=== PATIENT | female | born 1980 | race Two or more races ===

== ENCOUNTER 2016-11-27 16:09 | Emergency (ER) | payer OTHER ==
[~2016-11-27] VITALS: Ht 167.6 cm; Wt 100.0 kg
[~2016-11-27 16:09] MED LIST: HYDR-906 PO; MAG-19 PO; OMEP20CA16 PO; ONDA4TAB14 PO
[2016-11-27 16:11] VITALS: Ht 167.6 cm; Wt 100.0 kg
[2016-11-27] MEDS ORDERED: LIDOCAINE/MYLANTA 40 ML BTL PO STA (17:14)
--- NOTE | 2016-11-27 17:20 | ERD ---
ER Documentation Chief Complaint Date/Time DATE: 11/27/16 TIME: 17:17 Chief Complaint epigastric pain x 1 week HPI This is a 36-year-old female presenting to the emergency department for epigastric abdominal pain 1 week. Patient describes the pain as sharp rating 7 /10 to epigastric region. Went to her primary care provider who prescribed her omeprazole. Patient states she took omeprazole for 2 days and did not notice an improvement. Patient states today pain is worse. Does not notice any improvement or worsening with food intake. Denies fever chills at home. No shortness of breath or difficulty breathing. Denies chest pain or chest pressure. No heart palpitations. No headache or dizziness. Denies nausea, vomiting or diarrhea. No constipation. ROS All systems reviewed and are negative except as per history of present illness. Medications Home Meds Active Scripts Acetaminophen* (Tylenol*) 325 Mg Tablet, 1 TAB PO Q6 Y for PAIN AND OR ELEVATED TEMP, #20 TAB Prov:YANG HUNT NP 11/27/16 Famotidine* (Pepcid*) 20 Mg Tablet, 20 MG PO BID for 4 Days, TAB Prov:YANG HUNT NP 11/27/16 Omeprazole* (Omeprazole*) 20 Mg Capsule.dr, 20 MG PO DAILY, #30 Prov:ARIANA PLAZA NP 03/17/16 Magaldrate/Simethicone* (Mylanta*) 355 Ml Susp, 30 ML PO QID Y for GASTROINTESTINAL UPSET, #1 BOTTLE Prov:ARIANA PLAZA NP 03/17/16 Ondansetron (Ondansetron Odt) 4 Mg Tab.rapdis, 4 MG PO Q8 Y for NAUSEA AND/OR VOMITING, #30 TAB Prov:ARIANA PLAZA NP 03/17/16 Hydrocodone/Acetaminophen ([place] 5-325 Tablet) 1 Each Tablet, 1 TAB PO Q6H Y for PAIN, #20 TAB Prov:ARIANA PLAZA NP 03/17/16 Reported Medications [None] No Conflict Check 01/11/10 Allergies Allergies: Coded Allergies: No Known Drug Allergies (Verified Allergy, Mild, 01/20/12) PMhx/Soc History of Surgery: Yes ( X2, , UTERUS REPAIR) Anesthesia Reaction: No Hx Neurological Disorder: No Hx Respiratory Disorders: No Hx Cardiac Disorders: No Hx Psychiatric Problems: No Hx Miscellaneous Medical Probl: No Hx Alcohol Use: No Hx Substance Use: No Hx Tobacco Use: No Smoking Status: Never smoker Physical Exam Vitals Vital Signs Date Time Temp Pulse Resp B/P Pulse Ox O2 Delivery O2 Flow Rate FiO2 11/27/16 16:11 99.5 86 18 133/89 99 Physical Exam Const: No acute distress, alert Head: Atraumatic Eyes: Normal Conjunctiva ENT: Normal External Ears, Nose and Mouth. Neck: Full range of motion..~ No meningismus. Resp: Clear to auscultation bilaterally. No wheezing, rhonchi or crackles. Cardio: Regular rate and rhythm, no murmurs Abd: Soft, non tender, non distended. Normal bowel sounds. Negative Garber sign. Skin: No petechiae or rashes Back: No midline or flank tenderness Ext: No cyanosis, or edema Neur: Awake and alert Psych: Normal Mood and Affect Result Diagram: 11/27/16 1728 11/27/16 1728 Results 24 hrs Laboratory Tests Test 11/27/16 17:28 11/27/16 17:42 White Blood Count 9.410^3/ul Red Blood Count 4.6910^6/ul Hemoglobin 12.6g/dl Hematocrit 40.3% Mean Corpuscular Volume 85.9fl Mean Corpuscular Hemoglobin 26.9pg Mean Corpuscular Hemoglobin Concent 31.3g/dl Red Cell Distribution Width 13.2% Platelet Count 20406^3/UL Mean Platelet Volume 9.7fl Neutrophils % 55.4% Lymphocytes % 31.3% Monocytes % 8.4% Eosinophils % 4.1% Basophils % 0.5% Nucleated Red Blood Cells % 0.0/100WBC Neutrophils # 5.210^3/ul Lymphocytes # 2.910^3/ul Monocytes # 0.810^3/ul Eosinophils # 0.410^3/ul Basophils # 0.110^3/ul Nucleated Red Blood Cells # 0.010^3/ul Sodium Level 139mmol/L Potassium Level 4.0mmol/L Chloride Level 109mmol/L Carbon Dioxide Level 23mmol/L Anion Gap 11 Blood Urea Nitrogen 11mg/dl Creatinine 0.68mg/dl Glucose Level 104mg/dl Calcium Level 9.2mg/dl Total Bilirubin 0.1mg/dl Direct Bilirubin 0.00mg/dl Indirect Bilirubin 0.1mg/dl Aspartate Amino Transf (AST/SGOT) 19IU/L Alanine Aminotransferase (ALT/SGPT) 30IU/L Alkaline Phosphatase 64IU/L Total Protein 7.7g/dl Albumin 4.1g/dl Globulin 3.60g/dl Albumin/Globulin Ratio 1.13 Lipase 42U/L Bedside Urine pH (LAB) 5.5 Bedside Urine Protein (LAB) Negative Bedside Urine Glucose (UA) Negative Bedside Urine Ketones (LAB) Negative Bedside Urine Blood 1+ Bedside Urine Nitrite (LAB) Negative Bedside Urine Leukocyte Esterase (L Negative Current Medications Medications (Trade) Dose Ordered Sig/Cuco Route PRN Reason Start Time Stop Time Status Last Admin Dose Admin Miscellaneous Medication (Gi Cocktail (2)) 40 ml ONCE STAT PO 11/27/16 17:14 11/27/16 17:16 DC 11/27/16 17:21 Famotidine (Pepcid) 20 mg ONCE ONCE PO 11/27/16 17:30 11/27/16 17:31 DC 11/27/16 17:21 Ketorolac Tromethamine (Toradol) 30 mg ONCE STAT IV 11/27/16 18:18 11/27/16 18:19 DC 11/27/16 18:32 Acetaminophen/ Hydrocodone Bitart ([place] (5/325)) 1 tab ONCE ONCE PO 11/27/16 18:30 11/27/16 18:31 DC 11/27/16 18:32 Procedures/MDM Patient: ANAMIKA WHITE : 1980 Age: 36 Sex: F [id number] DOS: 11/27/16 1714 Ordering MD: YANG HUNT NP Location: [facility] Room/Bed: PROCEDURE: US Abdomen (right upper quadrant). CLINICAL INDICATION: Abdominal pain. TECHNIQUE: Multiple real-time longitudinal and transverse images of the right upper quadrant of the abdomen were acquired utilizing a curved array transducer. Images were reviewed on a high-resolution PACS workstation. COMPARISON: 03/17/2016 FINDINGS: The liver is normal in size and echogenicity without focal mass or intrahepatic biliary dilatation. The gallbladder is normal. There is no pericholecystic fluid or gallbladder wall thickening or gallstones. No intra or extrahepatic biliary dilatation is seen. The common bile duct measures 3.4 mm in maximal dimension. The visualized portions of the pancreas are unremarkable with obscuration of the tail of the pancreas. No free fluid is identified. The right kidney measures 10.2 cm in length. There is normal echogenicity within the right kidney. There is no perinephric fluid collection. No hydronephrosis, mass, or calculus is seen. IMPRESSION: Unremarkable right upper quadrant ultrasound. MDM: 36 year old female presents to ER with epigastric abdominal pain x 1 week. Pain is sharp and does not radiate. No chest pain, shortness of breath or difficulty breathing. No nausea, vomiting or diarrhea. Patient given pepcid and GI cocktail while in the ED. Upon reassessment, patient states pain has improved significantly and now rates pain 1-2/10. Labs are unremarkable for significant infection or anemia. Normal AST, ALT, bilirubin, glucose and creatinine. Normal WBC and Hgb. Gallbladder US reviewed by radiologist as unremarkable. Low suspicion for acute surgical abdomen, obstruction, peritonitis, acute cholangitis, acute cholecystitis or pancreatitis. Patient is appropriate for outpatient management and can follow up with their PCP in 2-3 days. Patient instructed to return to ED sooner if pain worsens or is intolerable, high fever or new symptoms such as anorexia, not tolerating PO, severe diarrhea or chest pain. Patient verbalizes understanding. All questions answered at discharge. Patient will be discharged with prescription for omeprazole and Tylenol. Departure Diagnosis: Primary Impression: Abdominal pain Abdominal location: right upper quadrant Qualified Code: R10.11 - Right upper quadrant abdominal pain Condition: Stable YANG HUNT NP November 27, 2016 17:20
[2016-11-27] MEDS ORDERED: FAMOTIDINE 20 MG TAB PO ONE (17:30)
[2016-11-27 17:39] LABS: URINE BLOOD (Dip) POC 1+ (NEGATIVE)
[2016-11-27 18:02] LABS: ADD SCAN DIFF NO
[2016-11-27 18:05] LABS: BASOPHIL # 0.1 10^3/ul (0.0-0.1); BASOPHILS % 0.5 % (0.0-2.0); EOSINOPHILS # 0.4 10^3/ul (0.0-0.5); EOSINOPHILS % 4.1 % (0.0-7.0); HEMATOCRIT 40.3 % (37.0-47.0); HEMOGLOBIN 12.6 g/dl (12.0-16.0); LYMPHOCYTES # 2.9 10^3/ul (0.8-2.9); LYMPHOCYTES % 31.3 % (15.0-51.0); MEAN CORPUSCULAR HEMOGLOBIN 26.9 pg (29.0-33.0); MEAN CORPUSCULAR HGB CONC 31.3 g/dl (32.0-37.0); MEAN CORPUSCULAR VOLUME 85.9 fl (82.0-101.0); MEAN PLATELET VOLUME 9.7 fl (7.4-10.4); MONOCYTE # 0.8 10^3/ul (0.3-0.9); MONOCYTES % 8.4 % (0.0-11.0); NEUTROPHIL # 5.2 10^3/ul (1.6-7.5); NEUTROPHILS % 55.4 % (39.0-77.0); PLATELET COUNT 338 10^3/UL (140-415); RED BLOOD COUNT 4.69 10^6/ul (4.20-5.40); RED CELL DISTRIBUTION WIDTH 13.2 % (11.5-14.5); WHITE BLOOD COUNT 9.4 10^3/ul (4.8-10.8)
--- NOTE | 2016-11-27 18:09 | RADRPT ---
PROCEDURE: US Abdomen (right upper quadrant). CLINICAL INDICATION: Abdominal pain. TECHNIQUE: Multiple real-time longitudinal and transverse images of the right upper quadrant of th e abdomen were acquired utilizing a curved array transducer. Images were reviewed on a high-resoluti on PACS workstation. COMPARISON: 03/17/2016 FINDINGS: The liver is normal in size and echogenicity without focal mass or intrahepatic biliary dilatation. The gallbladder is normal. There is no pericholecystic fluid or gallbladder wall thickening or gal lstones. No intra or extrahepatic biliary dilatation is seen. The common bile duct measures 3.4 mm in maximal dimension. The visualized portions of the pancreas are unremarkable with obscuration of the tail of the pancreas. No free fluid is identified. The right kidney measures 10.2 cm in length. There is normal echogenicity within the right kidney. There is no perinephric fluid collection. No hydronephrosis, mass, or calculus is seen. IMPRESSION: Unremarkable right upper quadrant ultrasound. RPTAT: .Severo Pablo MD, MD Date Time Electronically viewed and signed by .Severo Pablo MD, on 11/27/2016 18:08 .A/
[2016-11-27] MEDS ORDERED: KETOROLAC 30 MG INJ IV STA (18:18)
[2016-11-27 18:21] LABS: ALBUMIN 4.1 g/dl (3.3-4.9); ALBUMIN/GLOBULIN RATIO 1.13; BILIRUBIN,INDIRECT 0.1 mg/dl (0-1.1); BILIRUBIN,TOTAL 0.1 mg/dl (0.2-1.3); CALCIUM 9.2 mg/dl (8.4-10.2); CREATININE 0.68 mg/dl (0.44-1.00); TOTAL PROTEIN 7.7 g/dl (6.1-8.1)
[2016-11-27] MEDS ORDERED: HYDROCODONE/APAP (5/325) TAB PO ONE (18:30)
[2016-11-27] MEDS ORDERED: ACET325T33 PO (19:13)
[2016-11-27] MEDS ORDERED: FAMO-18 PO (19:13)
== END 2016-11-27 19:26 | disposition home or self-care (01) ==
LOC: FTE 16:09
DX: R10.11 Right upper quadrant pain (principal)
CPT/HCPCS: 36415; 76705; 80053; 81003; 83690; 85025; 96374; J1885; Z7502; Z7610

== ENCOUNTER 2017-01-21 19:53 | Emergency (ER) | payer OTHER ==
[~2017-01-21] VITALS: Ht 167.6 cm; Wt 99.0 kg
[~2017-01-21 19:53] MED LIST changes: +ACET325T33 PO; +FAMO-96 PO
[2017-01-21 19:57] VITALS: Ht 167.6 cm; Wt 99.0 kg
[2017-01-21] MEDS ORDERED: ACETAMINOPHEN 325 MG TAB PO STA (20:53)
--- NOTE | 2017-01-21 21:10 | ERD ---
ER Documentation Chief Complaint Date/Time DATE: 01/21/17 TIME: 21:07 Chief Complaint fall from standing, landing on back, pt is HPI 36-year-old female sent to emergency department for complaints of generalized abdominal pain after falling today. Patient tripped and fell, landed in the back , patient is approximately 10 weeks . 4 para 2 1. Patient has history of uterus with there during the second . Patient denies any vaginal bleeding. Patient's complaining of generalized abdominal pain , sharp pain, cramping pain, worse upon movement, 8/10, denies any vaginal bleeding. Patient denies any flank pain. Patient denies any back pain. Patient denies any loss of consciousness after the injury. ROS All systems reviewed and are negative except as per history of present illness. Medications Home Meds Active Scripts Acetaminophen* (Tylenol*) 325 Mg Tablet, 1 TAB PO Q6 Y for PAIN AND OR ELEVATED TEMP, #20 TAB Prov:YANG HUNT NP 11/27/16 Famotidine* (Pepcid*) 20 Mg Tablet, 20 MG PO BID for 4 Days, TAB Prov:YANG HUNT NP 11/27/16 Omeprazole* (Omeprazole*) 20 Mg Capsule.dr, 20 MG PO DAILY, #30 Prov:ARIANA PLAZA NP 03/17/16 Magaldrate/Simethicone* (Mylanta*) 355 Ml Susp, 30 ML PO QID Y for GASTROINTESTINAL UPSET, #1 BOTTLE Prov:ARIANA PLAZA NP 03/17/16 Ondansetron (Ondansetron Odt) 4 Mg Tab.rapdis, 4 MG PO Q8 Y for NAUSEA AND/OR VOMITING, #30 TAB Prov:ARIANA PLAZA NP 03/17/16 Hydrocodone/Acetaminophen ([place] 5-325 Tablet) 1 Each Tablet, 1 TAB PO Q6H Y for PAIN, #20 TAB Prov:ARIANA PLAZA NP 03/17/16 Reported Medications [None] No Conflict Check 01/11/10 Allergies Allergies: Coded Allergies: No Known Drug Allergies (Verified Allergy, Mild, 01/20/12) PMhx/Soc History of Surgery: Yes ( X2, , UTERUS REPAIR) Anesthesia Reaction: No Hx Neurological Disorder: No Hx Respiratory Disorders: No Hx Cardiac Disorders: No Hx Psychiatric Problems: No Hx Miscellaneous Medical Probl: No Hx Alcohol Use: No Hx Substance Use: No Hx Tobacco Use: No Smoking Status: Never smoker FmHx Family History: No coronary disease, No diabetes, No other Physical Exam Vitals Vital Signs Date Time Temp Pulse Resp B/P Pulse Ox O2 Delivery O2 Flow Rate FiO2 01/21/17 19:57 98.9 90 24 140/71 98 Physical Exam GENERAL: The patient is well developed and appropriate for usual state of health, in no apparent distress. CHEST: Clear to auscultation bilaterally. There are no rales, wheezes or rhonchi. HEART: Regular rate and rhythm. No murmurs, clicks, rubs or gallops. No S3 or S4. ABDOMEN: Soft, generalized abdominal tenderness. Good bowel sounds. No rebound or guarding. No gross peritonitis. No gross organomegaly or masses. No Garber sign or McBurney point tenderness. BACK: No midline or flank tenderness. EXTREMITIES: Equal pulses bilaterally. There is no peripheral clubbing, cyanosis or edema. No focal swelling or erythema. Full range of motion. Grossly neurovascularly intact. NEURO: Alert and oriented. Cranial nerves 2-12 intact. Motor strength in all 4 extremities with 5/5 strength. Sensation grossly intact. Normal speech and gait. SKIN: There is no apparent rash or petechia. The skin is warm and dry. HEMATOLOGIC AND LYMPHATIC: There is no evidence of excessive bruising or lymphedema. No gross cervical, axillary, or inguinal lymphadenopathy. Result Diagram: 01/21/172125 Results 24 hrs Laboratory Tests Test 01/21/17 21:17 01/21/17 21:26 Urine Color YELLOW Urine Clarity SLIGHTLY CLOUDY Urine pH 5.0 Urine Specific [place] 1.024 Urine Ketones NEGATIVEmg/dL Urine Nitrite NEGATIVEmg/dL Urine Bilirubin NEGATIVEmg/dL Urine Urobilinogen NEGATIVEmg/dL Urine Leukocyte Esterase NEGATIVELeu/ul Urine Microscopic RBC 33/HPF Urine Microscopic WBC 1/HPF Urine Mucus MODERATE/HPF Urine Hemoglobin 1+mg/dL Urine Glucose NEGATIVEmg/dL Urine Total Protein NEGATIVEmg/dl White Blood Count 9.410^3/ul Red Blood Count 4.3510^6/ul Hemoglobin 12.0g/dl Hematocrit 37.5% Mean Corpuscular Volume 86.2fl Mean Corpuscular Hemoglobin 27.6pg Mean Corpuscular Hemoglobin Concent 32.0g/dl Red Cell Distribution Width 13.2% Platelet Count 03070^3/UL Mean Platelet Volume 9.4fl Neutrophils % 62.2% Lymphocytes % 27.0% Monocytes % 7.7% Eosinophils % 2.4% Basophils % 0.4% Nucleated Red Blood Cells % 0.0/100WBC Neutrophils # 5.910^3/ul Lymphocytes # 2.510^3/ul Monocytes # 0.710^3/ul Eosinophils # 0.210^3/ul Basophils # 0.010^3/ul Nucleated Red Blood Cells # 0.010^3/ul Beta HCG, Quantitative 68362.0mIU/ml Current Medications Medications (Trade) Dose Ordered Sig/Cuco Route PRN Reason Start Time Stop Time Status Last Admin Dose Admin Acetaminophen (Tylenol Tab) 650 mg ONCE STAT PO 01/21/17 20:53 01/21/17 20:54 DC 01/21/17 21:18 Patient was given medication for pain here in emergency department, after treatment, patient verbalized feeling much better. Patient's pain is improved. PROCEDURE: OB Ultrasound. CLINICAL INDICATION: Positive test. Trauma. Pelvic pain. TECHNIQUE: Ultrasound of the pelvis was performed with transabdominal and transvaginal sonography in the axial and sagittal planes. COMPARISON: No prior study is available for comparison. FINDINGS: There is a single intrauterine gestational sac. pole and yolk sac are present. The yolk sac is abnormally enlarged. There is no heart motion. [place]-rump length is 0.40 cm. Mean sac diameter is 1.74 cm. There is a subchorionic hemorrhage. Menstrual age by ultrasound dates is 6 weeks 2 days. The right ovary appears normal measuring 3.3 x 2.1 x 3.2 cm. The left ovary appears normal measuring 2.5 x 2.4 x 2.6 cm. Color Doppler and pulsed Doppler sonography demonstrate normal flow to the ovaries. There is no other pelvic mass or free fluid. IMPRESSION: 1. Failed at 6 weeks 2 days menstrual age by ultrasound dates. 2. Subchorionic hemorrhage. 3. Otherwise unremarkable study. RPTAT: QQ .Giles Russ MD, Date Time Electronically viewed and signed by .Giles Russ MD, MD on 01/21/2017 22:39 .R/ CC: ARIANA PLAZA MANAGER [employer] Procedures/MDM Medical Decision Making: Patient symptoms affect is consistent with threatened , most likely may have been field at 6 weeks, no heart tone noted, there is a subchorionic hemorrhage noted. Patient's pain may be from the trauma, no symptoms of any other acute abdominal emergencies at this time. Upon reevaluation of patient, and after giving Tylenol, patient verbalizing much better, denies any abdominal pain anymore. Patient is currently not bleeding at this time. No symptoms of any other organ hemorrhage or damage at this time.. There is low suspicion for abdominal emergencies at this time. Patients abdominal exam is normal at this time. Patients radiology exam does not show any abdominal emergencies at this time. There is low suspicion for appendicitis, cholecystitis, abdominal aortic aneurysms or peritonitis at this time. There is low suspicion for sepsis. Patient appears well and is hemodynamically stable. . Patient does not show any evidence of hypovolemic shock. Patients hemoglobin and hematocrit is stable. There is low suspicion for ectopic . SILVIA results show intrauterine without any heartbeat BetaHCG Quantitative is appropriate for 6 weeks The patient is Rh+, does not need RhoGAM this time. Disposition: Home. Condition: Stable Rx: Tylenol Instructions: Patient is advised to do bed rest, avoid heavy lifting, and avoid having sex until cleared by OB doctor. Patient is advised to follow up with OB doctor or here at the ER in 48 hours for reevaluation of symptoms, repeat beta HCG quantitative and ultrasound. Patient is advised that is symptoms are worst, severe bleeding, dizziness, severe abdominal pain, fever, worst signs and symptoms to return to the emergency department immediately. Departure Diagnosis: Primary Impression: Abdominal pain Abdominal location: generalized Qualified Code: R10.84 - Generalized abdominal pain Additional Impressions: Back contusion Encounter type: initial encounter Laterality: unspecified laterality Qualified Code: S20.229A - Back contusion, unspecified laterality, initial encounter Intrauterine Subchorionic hemorrhage Fetus number: single or unspecified fetus Trimester: unspecified trimester Qualified Code: O41.8X90 - Subchorionic hemorrhage, unspecified trimester, not applicable or unspecified fetus Condition: Stable Patient Instructions: Abdominal Pain, Early , Contusion, Back Additional Instructions: Patient is advised to do bed rest, avoid heavy lifting, and avoid having sex until cleared by OB doctor. Patient is advised to follow up with OB doctor or here at the ER in 48 hours for reevaluation of symptoms, repeat beta HCG quantitative and ultrasound. Patient is advised that is symptoms are worst, severe bleeding, dizziness, severe abdominal pain, fever, worst signs and symptoms to return to the emergency department immediately. ARIANA PLAZA NP Jan 21, 2017 21:10
[2017-01-21 21:35] LABS: ADD SCAN DIFF NO
[2017-01-21 21:38] LABS: BASOPHILS % 0.4 % (0.0-2.0); EOSINOPHILS # 0.2 10^3/ul (0.0-0.5); EOSINOPHILS % 2.4 % (0.0-7.0); HEMATOCRIT 37.5 % (37.0-47.0); LYMPHOCYTES # 2.5 10^3/ul (0.8-2.9); MEAN CORPUSCULAR HEMOGLOBIN 27.6 pg (29.0-33.0); MEAN CORPUSCULAR VOLUME 86.2 fl (82.0-101.0); MEAN PLATELET VOLUME 9.4 fl (7.4-10.4); MONOCYTE # 0.7 10^3/ul (0.3-0.9); MONOCYTES % 7.7 % (0.0-11.0); NEUTROPHIL # 5.9 10^3/ul (1.6-7.5); NEUTROPHILS % 62.2 % (39.0-77.0); PLATELET COUNT 338 10^3/UL (140-415); RED BLOOD COUNT 4.35 10^6/ul (4.20-5.40); RED CELL DISTRIBUTION WIDTH 13.2 % (11.5-14.5); WHITE BLOOD COUNT 9.4 10^3/ul (4.8-10.8)
[2017-01-21 21:39] LABS: ADD UMIC YES; UR ASCORBIC ACID NEGATIVE (NEGATIVE); UR BILIRUBIN (Dip) NEGATIVE (NEGATIVE); UR BLOOD (Dip) 1+ mg/dL (NEGATIVE); UR CLARITY SLIGHTLY CLOUDY (CLEAR); UR COLOR YELLOW (YELLOW); UR GLUCOSE (Dip) NEGATIVE (NEGATIVE); UR KETONES (Dip) NEGATIVE (NEGATIVE); UR LEUKOCYTE ESTERASE (Dip) NEGATIVE Leu/ul (NEGATIVE); UR MUCUS MODERATE /HPF (NONE SEEN); UR NITRITE (Dip) NEGATIVE (NEGATIVE); UR RBC 33 /HPF (0-5); UR SPECIFIC GRAVITY (Dip) 1.024 (1.003-1.030); UR TOTAL PROTEIN (Dip) NEGATIVE (NEGATIVE); UR UROBILINOGEN (Dip) NEGATIVE (NEGATIVE)
--- NOTE | 2017-01-21 22:40 | RADRPT ---
PROCEDURE: OB Ultrasound. CLINICAL INDICATION: Positive test. Trauma. Pelvic pain. TECHNIQUE: Ultrasound of the pelvis was performed with transabdominal and transvaginal sonography in the axial and sagittal planes. COMPARISON: No prior study is available for comparison. FINDINGS: There is a single intrauterine gestational sac. pole and yolk sac are present. The yolk sac i s abnormally enlarged. There is no heart motion. [place]-rump length is 0.40 cm. Mean sac diameter is 1.74 cm. There is a subchorionic hemorrhage. Menstrual age by ultrasound dates is 6 weeks 2 days. The right ovary appears normal measuring 3.3 x 2.1 x 3.2 cm. The left ovary appears normal measuring 2.5 x 2.4 x 2.6 cm. Color Doppler and pulsed Doppler sonography demonstrate normal flow to the ovaries. There is no other pelvic mass or free fluid. IMPRESSION: 1. Failed at 6 weeks 2 days menstrual age by ultrasound dates. 2. Subchorionic hemorrhage. 3. Otherwise unremarkable study. RPTAT: QQ .Giles Russ MD, Date Time Electronically viewed and signed by .Giles Russ MD, on 01/21/2017 22:39 .R/
[2017-01-21] MEDS ORDERED: ACET500C5 PO (23:07)
== END 2017-01-21 23:26 | disposition home or self-care (01) ==
LOC: FTE 19:53
DX: O9A.211 Injury, poisoning and certain other consequences of external causes complicating pregnancy, first trimester (principal); S39.91XA Unspecified injury of abdomen, initial encounter; S20.229A Contusion of unspecified back wall of thorax, initial encounter; O36.8910 Maternal care for other specified fetal problems, first trimester, not applicable or unspecified; R10.2 Pelvic and perineal pain; W01.0XXA Fall on same level from slipping, tripping and stumbling without subsequent striking against object, initial encounter; Y92.9 Unspecified place or not applicable; Z3A.01 Less than 8 weeks gestation of pregnancy
CPT/HCPCS: 76801; 76817; 81001; 84702; 85025; 86900; 86901; Z7502; Z7610

== ENCOUNTER 2017-01-27 09:46 | Emergency (ER) | payer OTHER ==
[~2017-01-27] VITALS: Wt 90.9 kg
[~2017-01-27 09:46] MED LIST changes: +ACET500C5 PO
[2017-01-27] MEDS ORDERED: morphine 10 MG INJ IM ONE (10:30)
[2017-01-27 12:27] LABS: ADD SCAN DIFF NO
[2017-01-27 12:31] LABS: BASOPHILS % 0.3 % (0.0-2.0); EOSINOPHILS # 0.1 10^3/ul (0.0-0.5); EOSINOPHILS % 1.4 % (0.0-7.0); HEMATOCRIT 37.9 % (37.0-47.0); HEMOGLOBIN 12.2 g/dl (12.0-16.0); LYMPHOCYTES # 1.3 10^3/ul (0.8-2.9); LYMPHOCYTES % 15.3 % (15.0-51.0); MEAN CORPUSCULAR HEMOGLOBIN 27.7 pg (29.0-33.0); MEAN CORPUSCULAR HGB CONC 32.2 g/dl (32.0-37.0); MEAN CORPUSCULAR VOLUME 86.1 fl (82.0-101.0); MEAN PLATELET VOLUME 9.4 fl (7.4-10.4); MONOCYTE # 0.6 10^3/ul (0.3-0.9); MONOCYTES % 7.3 % (0.0-11.0); NEUTROPHIL # 6.5 10^3/ul (1.6-7.5); NEUTROPHILS % 75.4 % (39.0-77.0); PLATELET COUNT 308 10^3/UL (140-415); RED CELL DISTRIBUTION WIDTH 12.8 % (11.5-14.5); WHITE BLOOD COUNT 8.6 10^3/ul (4.8-10.8)
[2017-01-27 12:34] LABS: ADD UMIC YES; UR ASCORBIC ACID NEGATIVE (NEGATIVE); UR BILIRUBIN (Dip) NEGATIVE (NEGATIVE); UR BLOOD (Dip) 1+ mg/dL (NEGATIVE); UR CLARITY CLEAR (CLEAR); UR COLOR STRAW (YELLOW); UR GLUCOSE (Dip) NEGATIVE (NEGATIVE); UR KETONES (Dip) NEGATIVE (NEGATIVE); UR LEUKOCYTE ESTERASE (Dip) NEGATIVE Leu/ul (NEGATIVE); UR MUCUS FEW /HPF (NONE SEEN); UR NITRITE (Dip) NEGATIVE (NEGATIVE); UR RBC 0 /HPF (0-5); UR SPECIFIC GRAVITY (Dip) 1.008 (1.003-1.030); UR TOTAL PROTEIN (Dip) NEGATIVE (NEGATIVE); UR UROBILINOGEN (Dip) NEGATIVE (NEGATIVE)
--- NOTE | 2017-01-27 13:11 | RADRPT ---
AMENDMENT: 01/27/2017 2:06:00 PM Ly Pierre M.D. Comparison is made to prior ultrasound dated 01/21/2017. There has been no significant interval jay nge. Findings are compatible with early failed . PROCEDURE: US OB. CLINICAL INDICATION: Pelvic pain TECHNIQUE: Transabdominal and endovaginal imaging of the uterus is available for review COMPARISON: None available FINDINGS: There is a single intrauterine with a mean sac diameter of 1.61 cm, giving an estimated ge stational age of 6 weeks 2 days by ultrasound criteria. No pole or yolk sac is detected. A s mall subchorionic hemorrhage is identified. The left ovary is unremarkable. The right ovary was not visualized. IMPRESSION: Single intrauterine with an estimated gestational age of 6 weeks 2 days by ultrasound crit eria. No pole right sac is identified. This may be secondary to early dates. Repeat pelvic u ltrasound is recommended in 1 week. RPTAT: HH .Ly Pierre MD, MD Date Time Electronically viewed and signed by .Ly Pierre MD, on 01/27/2017 14:05 .G/
[2017-01-27] MEDS ORDERED: SOD CHLORIDE 0.9% 1,000 ML IV ONE (14:30)
[2017-01-27] MEDS ORDERED: ACET325T33 PO (14:44)
--- NOTE | 2017-01-27 14:53 | ERA ---
ER Documentation Chief Complaint Date/Time DATE: 01/27/17 TIME: 14:47 Chief Complaint pelvic pain s/p miscarraige on . HPI This is a 36-year-old female presenting with a chief complaint of pelvic pain. . Patient was diagnosed with a spontaneous 1 week ago. Patient was seen at [facility] and diagnosed with nausea and given Pepcid per documentation. Patient denies any fever, dysuria, constipation, abdominal pain , nausea, vomiting. Pain is 10 out of 10 and poorly described. No symptoms like this in the past. No complications with the before the spontaneous . Denies any bleeding. ROS All systems reviewed and are negative except as per history of present illness. Medications Home Meds Active Scripts Acetaminophen* (Tylenol*) 325 Mg Tablet, 1 TAB PO Q8 Y for PAIN AND OR ELEVATED TEMP, #20 TAB Prov:HUEY MORENO PA-C 01/27/17 Acetaminophen* (Tylophen*) 500 Mg Capsule, 1 CAP PO Q6H Y for PAIN AND OR ELEVATED TEMP, #20 CAP Prov:ARIANA PLAZA NP 01/21/17 Acetaminophen* (Tylenol*) 325 Mg Tablet, 1 TAB PO Q6 Y for PAIN AND OR ELEVATED TEMP, #20 TAB Prov:YANG HUNT NP 11/27/16 Famotidine* (Pepcid*) 20 Mg Tablet, 20 MG PO BID for 4 Days, TAB Prov:YANG HUNT NP 11/27/16 Omeprazole* (Omeprazole*) 20 Mg Capsule.dr, 20 MG PO DAILY, #30 Prov:ARIANA PLAZA NP 03/17/16 Magaldrate/Simethicone* (Mylanta*) 355 Ml Susp, 30 ML PO QID Y for GASTROINTESTINAL UPSET, #1 BOTTLE Prov:ARIANA PLAZA NP 03/17/16 Ondansetron (Ondansetron Odt) 4 Mg Tab.rapdis, 4 MG PO Q8 Y for NAUSEA AND/OR VOMITING, #30 TAB Prov:ARIANA PLAZA NP 03/17/16 Hydrocodone/Acetaminophen ([place] 5-325 Tablet) 1 Each Tablet, 1 TAB PO Q6H Y for PAIN, #20 TAB Prov:ARIANA PLAZA NP 03/17/16 Reported Medications [None] No Conflict Check 01/11/10 Allergies Allergies: Coded Allergies: No Known Drug Allergies (Verified Allergy, Mild, 01/20/12) PMhx/Soc History of Surgery: Yes ( X2, , UTERUS REPAIR) Anesthesia Reaction: No Hx Neurological Disorder: No Hx Respiratory Disorders: No Hx Cardiac Disorders: No Hx Psychiatric Problems: No Hx Miscellaneous Medical Probl: No Hx Alcohol Use: No Hx Substance Use: No Hx Tobacco Use: No Smoking Status: Never smoker Physical Exam Vitals Vital Signs Date Time Temp Pulse Resp B/P Pulse Ox O2 Delivery O2 Flow Rate FiO2 01/27/17 15:29 98.2 75 19 134/77 100 Room Air 01/27/17 09:47 99.3 89 20 121/75 99 Physical Exam Const: Overweight 36-year-old female presenting with and no acute distress. Head: Atraumatic Eyes: Normal Conjunctiva. EOMI, PERRLA. No nystagmus. ENT: Normal External Ears, Nose and Mouth. Neck: Full range of motion..~ No meningismus. Resp: Clear to auscultation bilaterally Cardio: Regular rate and rhythm, no murmurs Abd: Pelvic area moderate lead tender to palpation. Soft, non tender, non distended. Normal bowel sounds Skin: No petechiae or rashes Back: No midline or flank tenderness Ext: No cyanosis, or edema Neur: Awake and alert Psych: Normal Mood and Affect Result Diagram: 01/27/17 1215 Results 24 hrs Laboratory Tests Test 01/27/17 12:15 White Blood Count 8.610^3/ul Red Blood Count 4.4010^6/ul Hemoglobin 12.2g/dl Hematocrit 37.9% Mean Corpuscular Volume 86.1fl Mean Corpuscular Hemoglobin 27.7pg Mean Corpuscular Hemoglobin Concent 32.2g/dl Red Cell Distribution Width 12.8% Platelet Count 98737^3/UL Mean Platelet Volume 9.4fl Neutrophils % 75.4% Lymphocytes % 15.3% Monocytes % 7.3% Eosinophils % 1.4% Basophils % 0.3% Neutrophils # 6.510^3/ul Lymphocytes # 1.310^3/ul Monocytes # 0.610^3/ul Eosinophils # 0.110^3/ul Basophils # 0.010^3/ul Nucleated Red Blood Cells # 0.010^3/ul Urine Color STRAW Urine Clarity CLEAR Urine pH 7.0 Urine Specific [place] 1.008 Urine Ketones NEGATIVEmg/dL Urine Nitrite NEGATIVEmg/dL Urine Bilirubin NEGATIVEmg/dL Urine Urobilinogen NEGATIVEmg/dL Urine Leukocyte Esterase NEGATIVELeu/ul Urine Microscopic RBC 0/HPF Urine Microscopic WBC 1/HPF Urine Mucus FEW/HPF Urine Hemoglobin 1+mg/dL Urine Glucose NEGATIVEmg/dL Urine Total Protein NEGATIVEmg/dl Beta HCG, Quantitative 5674.9mIU/ml Current Medications Medications (Trade) Dose Ordered Sig/Cuco Route PRN Reason Start Time Stop Time Status Last Admin Dose Admin Morphine Sulfate 6 mg 6 mg ONCE ONCE IM 01/27/17 10:30 01/27/17 10:31 DC 01/27/17 10:26 Sodium Chloride (NS) 1,000 ml @ 1,000 mls/hr Q1H ONCE IV 01/27/17 14:30 01/27/17 14:30 DC Procedures/MDM 36-year-old female presenting with a chief complaint of pelvic pain as described in history and physical examination. There is been no bleeding or passage of tissue before or since the diagnosis of spontaneous . Previous documents were reviewed. Pelvic exam was unremarkable in the cervical os was unable to be identified. High School Teacher was TY Rosales. Ultrasound 6 days ago revealed failed . Ultrasound was repeated today read by the radiologist given the following impression: Single intrauterine with an estimated gestational age of 6 weeks 2 days by ultrasound criteria. No pole right sac is identified. This may be secondary to early dates. Repeat pelvic ultrasound is recommended in 1 week. RN TRAUMA was consulted and the case was presented. The RN TRAUMA evaluated the patient himself. After reviewing the history status, he determined a D&C to be unsafe due to previous and previous ruptured uterus with possible resultant scarring. Thus the RN TRAUMA has recommended that the patient follow-up in 7-10 days with a repeat ultrasound. I have also spoke to the patient and have recommended she return to the emergency department immediately if symptoms change or worsen. Patient has verbally acknowledged and agreed to the plan of management. Departure Diagnosis: Primary Impression: Spontaneous Condition: Stable Patient Instructions: Miscarriage, Spontaneous (Completed) Additional Instructions: Return to emergency department if symptoms worsen or change. Follow recommendations that have been given to you by RN TRAUMA. Follow-up and 7-10 days for reevaluation. HUEY MORENO PA-C Jan 27, 2017 14:53
--- NOTE | 2017-01-27 15:28 | CONS ---
Date/Time of Note Date/Time of Note DATE: 01/27/17 TIME: 15:18 Consultation Date/Type/Reason Admit Date/Time January 27, 2070 Emergency room consult Reason for Consultation Due to positive test and trauma and pelvic pain in the past and at that time was reported no heart motion just a single intrauterine gestational sac with a crown-rump length of 0.4 cm and mean sac diameter of 1.74 and there was a subchorionic hemorrhage so estimated gestational size of 6 weeks and 2 days dog with subchorionic hemorrhage patient was sent home to be followed in the emergency room she came this week and her beta-hCG from close to 10,000 dropped to 5674 an ultrasound repeated a single intrauterine with a mean diameter of 1.67 cm an week gestational age of 6.2 days was reported on the ultrasound on On pelvic examination she did not have any bleeding vulva and vagina were normal uterus was about normal size although it was difficult to palpate an estimate the exact size of the uterus but it definitely was not enlarged with no tenderness Her abdomen was soft no rebound no tenderness Laboratory Tests Test 01/27/17 12:15 White Blood Count 8.610^3/ul Red Blood Count 4.4010^6/ul Hemoglobin 12.2g/dl Hematocrit 37.9% Mean Corpuscular Volume 86.1fl Mean Corpuscular Hemoglobin 27.7pg Mean Corpuscular Hemoglobin Concent 32.2g/dl Red Cell Distribution Width 12.8% Platelet Count 58578^3/UL Mean Platelet Volume 9.4fl Neutrophils % 75.4% Lymphocytes % 15.3% Monocytes % 7.3% Eosinophils % 1.4% Basophils % 0.3% Neutrophils # 6.510^3/ul Lymphocytes # 1.310^3/ul Monocytes # 0.610^3/ul Eosinophils # 0.110^3/ul Basophils # 0.010^3/ul Nucleated Red Blood Cells # 0.010^3/ul Urine Color STRAW Urine Clarity CLEAR Urine pH 7.0 Urine Specific [place] 1.008 Urine Ketones NEGATIVEmg/dL Urine Nitrite NEGATIVEmg/dL Urine Bilirubin NEGATIVEmg/dL Urine Urobilinogen NEGATIVEmg/dL Urine Leukocyte Esterase NEGATIVELeu/ul Urine Microscopic RBC 0/HPF Urine Microscopic WBC 1/HPF Urine Mucus FEW/HPF Urine Hemoglobin 1+mg/dL Urine Glucose NEGATIVEmg/dL Urine Total Protein NEGATIVEmg/dl Beta HCG, Quantitative 5674.9mIU/ml Current Medications Medications (Trade) Dose Ordered Sig/Cuco Route PRN Reason Start Time Stop Time Status Last Admin Dose Admin Morphine Sulfate 6 mg 6 mg ONCE ONCE IM 01/27/17 10:30 01/27/17 10:31 DC 01/27/17 10:26 6 MG Sodium Chloride (NS) 1,000 ml @ 1,000 mls/hr Q1H ONCE IV 01/27/17 14:30 01/27/17 14:30 DC Constitutional: No chills, No diaphoresis, No disoriented, No febrile, No improved, No no complaints, No other, No poor po, No requiring IVF, No requiring O2 Eyes: No discharge, No no complaints, No other, No pain, No redness, No visual change ENT: No bleeding, No congestion, No discharge, No dysphagia, No no complaints, No other, No pain, No sore throat Respiratory: No cough, No no complaints, No other, No pain, No pleuritic pain, No shortness of breath, No sputum, No wheezing Cardiovascular: No chest pain, No edema, No lightheadedness, No no complaints, No orthopenea, No other, No palpitations, No paroxysmal nocturnal dyspnea Gastrointestinal: other (No abdominal pain no CVA tenderness), No blood, No constipation, No decreased appetite, No diarrhea, No flatus, No nausea, No no complaints, No pain, No passing stool, No vomiting Genitourinary: other, No bleeding, No discharge, No dysuria, No flank pain, No hematuria, No no complaints Musculoskeletal: back pain, No bone/joint pain, No neck pain, No no complaints, No other, No restricted range of motion, No swelling Neurologic: No confusion, No dizziness, No focal-weakness, No headache, No no complaints, No other, No seizure, No syncope Additional Comments On repeated ultrasound the uterine size was slightly smaller the beta-hCG dropped as a mention to almost have I reviewed her past history during the previous loss she had an abdominal surgery and evidence of rupture of the uterus was noted about 3 cm in diameter on laparotomy the fetus and the placenta was floating inside the large amount blood and clot inside the abdomen. 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 With these finding in the past patient was discharged home to return in clinic for further workup if any pain she she might need a laparoscopy or laparotomy to ensure that there will be no other rupture of the uterus although the beta- hCG is going down and would not be any need for any intervention. Patient situation was discussed with her in detail she understands all of those in case of abdominal pain vaginal bleeding she will immediately return to the emergency room End of dictation thank you Social History Smoking Status: Never smoker Exam/Review of Systems Vital Signs Vitals Vital Signs Date Time Temp Pulse Resp B/P Pulse Ox O2 Delivery O2 Flow Rate FiO2 01/27/17 09:47 99.3 89 20 121/75 99 Results Result Diagram: 01/27/17 1215 Results 24 hrs Laboratory Tests Test 01/27/17 12:15 White Blood Count 8.6 Red Blood Count 4.40 Hemoglobin 12.2 Hematocrit 37.9 Mean Corpuscular Volume 86.1 Mean Corpuscular Hemoglobin 27.7 L Mean Corpuscular Hemoglobin Concent 32.2 Red Cell Distribution Width 12.8 Platelet Count 308 Mean Platelet Volume 9.4 Neutrophils % 75.4 Lymphocytes % 15.3 Monocytes % 7.3 Eosinophils % 1.4 Basophils % 0.3 Neutrophils # 6.5 Lymphocytes # 1.3 Monocytes # 0.6 Eosinophils # 0.1 Basophils # 0.0 Nucleated Red Blood Cells # 0.0 Urine Color STRAW Urine Clarity CLEAR Urine pH 7.0 Urine Specific [place] 1.008 Urine Ketones NEGATIVE Urine Nitrite NEGATIVE Urine Bilirubin NEGATIVE Urine Urobilinogen NEGATIVE Urine Leukocyte Esterase NEGATIVE Urine Microscopic RBC 0 Urine Microscopic WBC 1 Urine Mucus FEW A Urine Hemoglobin 1+ H Urine Glucose NEGATIVE Urine Total Protein NEGATIVE Beta HCG, Quantitative 5674.9 RIVERA SILVA MD Jan 27, 2017 15:27
[2017-01-27 15:29] VITALS: BP 134/77; PULSE 75; RESP 19; TEMP 98.2
== END 2017-01-27 15:38 | disposition home or self-care (01) ==
LOC: FTE 09:46
DX: O03.9 Complete or unspecified spontaneous abortion without complication (principal); R10.2 Pelvic and perineal pain
CPT/HCPCS: 76801; 76817; 81001; 84702; 85025; J2270; 36415; 96372; J7030

== ENCOUNTER 2017-04-06 12:04 | Emergency (ER) | payer OTHER ==
[~2017-04-06] VITALS: Ht 167.6 cm; Wt 100.0 kg
[2017-04-06 12:24] VITALS: Ht 167.6 cm; Wt 100.0 kg
[2017-04-06] MEDS ORDERED: morphine 4 MG/ML VIAL IV STA ×2 (13:35→18:39)
[2017-04-06] MEDS ORDERED: ONDANSETRON 4 MG INJ IV STA (13:35)
--- NOTE | 2017-04-06 13:40 | ERA ---
ER Documentation Chief Complaint Date/Time DATE: 04/06/17 TIME: 13:37 Chief Complaint abdominal pain x 4 days HPI 36-year-old female presents with a chief complaint of abdominal pain that worsens when she eats 10 hours. Describes abdominal pain is diffuse. Has not taken any medication for the pain. Describes the pain as dull worse with palpation and 8-9 out of 10. Patient states that is intermittent. Complains of nausea. Denies vomiting, diarrhea, constipation, fever. States that she is able to tolerate p.o. but has felt less hungry. Patient has no other complaints and describes no other associated manifestations. Nursing notes have been reviewed and are consistent with history given. ROS All systems reviewed and are negative except as per history of present illness. Medications Home Meds Active Scripts Hydrocodone/Acetaminophen ([place] 5-325 Tablet) 1 Each Tablet, 1 TAB PO Q6H Y for PAIN, #5 TAB Prov:HUEY MORENO PA-C 04/06/17 Acetaminophen* (Tylenol*) 325 Mg Tablet, 1 TAB PO Q8 Y for PAIN AND OR ELEVATED TEMP, #20 TAB Prov:HUEY MORENO PA-C 01/27/17 Acetaminophen* (Tylophen*) 500 Mg Capsule, 1 CAP PO Q6H Y for PAIN AND OR ELEVATED TEMP, #20 CAP Prov:ARIANA PLAZA NP 01/21/17 Acetaminophen* (Tylenol*) 325 Mg Tablet, 1 TAB PO Q6 Y for PAIN AND OR ELEVATED TEMP, #20 TAB Prov:YANG HUNT NP 11/27/16 Famotidine* (Pepcid*) 20 Mg Tablet, 20 MG PO BID for 4 Days, TAB Prov:YANG HUNT NP 11/27/16 Omeprazole* (Omeprazole*) 20 Mg Capsule.dr, 20 MG PO DAILY, #30 Prov:ARIANA PLAZA NP 03/17/16 Magaldrate/Simethicone* (Mylanta*) 355 Ml Susp, 30 ML PO QID Y for GASTROINTESTINAL UPSET, #1 BOTTLE Prov:ARIANA PLAZA NP 03/17/16 Ondansetron (Ondansetron Odt) 4 Mg Tab.rapdis, 4 MG PO Q8 Y for NAUSEA AND/OR VOMITING, #30 TAB Prov:ARIANA PLAZA NP 03/17/16 Hydrocodone/Acetaminophen ([place] 5-325 Tablet) 1 Each Tablet, 1 TAB PO Q6H Y for PAIN, #20 TAB Prov:ARIANA PLAZA HEALTH CARE ANALYST 03/17/16 Reported Medications [None] No Conflict Check 01/11/10 Allergies Allergies: Coded Allergies: No Known Drug Allergies (Verified Allergy, Mild, 01/20/12) PMhx/Soc History of Surgery: Yes ( X2, , UTERUS REPAIR) Anesthesia Reaction: No Hx Neurological Disorder: No Hx Respiratory Disorders: No Hx Cardiac Disorders: No Hx Psychiatric Problems: No Hx Miscellaneous Medical Probl: No Hx Alcohol Use: No Hx Substance Use: No Hx Tobacco Use: No Physical Exam Vitals Vital Signs Date Time Temp Pulse Resp B/P Pulse Ox O2 Delivery O2 Flow Rate FiO2 04/06/17 12:24 98.0 78 18 152/89 99 Physical Exam Const: Healthy-appearing. Well-nourished. Well-developed. No acute distress. Abd: Garber sign. Tender to palpation in the right upper quadrant, and epigastric region. No tenderness elicited with palpation. Negative rovsings, psoas, obturator. No distinct Mcburneys point tenderness. No discomfort with heel strike. Normal bowl sounds auscultated in all 4 quadrants. No aortic / renal / iliac bruits appreciated. No abnormalities noted upon percussion of liver, spleen, or over the 4 abdominal quadrants. No hepatomegaly, splenomegaly , or enlarged abdominal aorta appreciated upon palpation. Abdomen non-distended and soft with no rebound or guarding. Back: No CVA tenderness. No midline or flank tenderness. Head: Normocephalic, Atraumatic. Eyes: Non-injected; No scleral erythema, discharge or foreign body. EOMI and MAGGIE bilaterally. Ears: Normal External Ears, EACs clear, TM normal bilaterally without erythema. Nose: Normal nose without discharge, septal deviation, or sinus tenderness. Oral: No oral edema visualized. Mucous membranes moist and pink. Neck: No cervical lymphadenopathy, masses or goiter palpated. Trachea midline. Supple ~ No meningismus. Pulm: No dyspnea, stridor, tripoding or drooling. Good air movement. Clear to auscultation bilaterally. Cardio: Regular rate and rhythm; No murmurs, gallops or rubs auscultated. No JVD grossly observed. Radial and posterior tibial pulses 2+ bilaterally. Capillary refill less than 2 seconds. MS: Normal motor strength, normal tone with gross examination. Skin: No petechiae or rashes. No ulcer, induration, jaundice. Good turgor. Ext: No cyanosis, edema or palpable cord. Normal movement of all extremities grossly observed. Neur: Awake, alert and oriented x3. Neurovascularly intact bilaterally. Psych: Normal Mood and Affect. Result Diagram: 04/06/17 1444 04/06/17 1444 Results 24 hrs Laboratory Tests Test 04/06/17 14:44 White Blood Count 9.310^3/ul Red Blood Count 4.7510^6/ul Hemoglobin 12.9g/dl Hematocrit 40.8% Mean Corpuscular Volume 85.9fl Mean Corpuscular Hemoglobin 27.2pg Mean Corpuscular Hemoglobin Concent 31.6g/dl Red Cell Distribution Width 12.8% Platelet Count 17372^3/UL Mean Platelet Volume 9.4fl Neutrophils % 62.1% Lymphocytes % 25.2% Monocytes % 8.1% Eosinophils % 3.8% Basophils % 0.6% Nucleated Red Blood Cells % 0.0/100WBC Neutrophils # 5.810^3/ul Lymphocytes # 2.310^3/ul Monocytes # 0.810^3/ul Eosinophils # 0.410^3/ul Basophils # 0.110^3/ul Nucleated Red Blood Cells # 0.010^3/ul Urine Color YELLOW Urine Clarity CLEAR Urine pH 5.0 Urine Specific [place] 1.020 Urine Ketones NEGATIVEmg/dL Urine Nitrite NEGATIVEmg/dL Urine Bilirubin NEGATIVEmg/dL Urine Urobilinogen NEGATIVEmg/dL Urine Leukocyte Esterase NEGATIVELeu/ul Urine Microscopic RBC 1/HPF Urine Microscopic WBC 1/HPF Urine Mucus FEW/HPF Urine Hemoglobin 1+mg/dL Urine Glucose NEGATIVEmg/dL Urine Total Protein NEGATIVEmg/dl Sodium Level 142mmol/L Potassium Level 3.8mmol/L Chloride Level 106mmol/L Carbon Dioxide Level 25mmol/L Anion Gap 15 Blood Urea Nitrogen 7mg/dl Creatinine 0.71mg/dl Glucose Level 88mg/dl Calcium Level 9.4mg/dl Total Bilirubin 0.4mg/dl Direct Bilirubin 0.00mg/dl Indirect Bilirubin 0.4mg/dl Aspartate Amino Transf (AST/SGOT) 23IU/L Alanine Aminotransferase (ALT/SGPT) 34IU/L Alkaline Phosphatase 87IU/L Total Protein 8.1g/dl Albumin 4.5g/dl Globulin 3.60g/dl Albumin/Globulin Ratio 1.25 Lipase 42U/L Current Medications Medications (Trade) Dose Ordered Sig/Cuco Route PRN Reason Start Time Stop Time Status Last Admin Dose Admin Morphine Sulfate (morphine) 4 mg ONCE STAT IV 04/06/17 13:35 04/06/17 13:37 DC 04/06/17 14:28 Ondansetron HCl (Zofran Inj) 4 mg ONCE STAT IV 04/06/17 13:35 04/06/17 13:37 DC 04/06/17 14:28 Ketorolac Tromethamine (Toradol) 30 mg ONCE STAT IV 04/06/17 16:09 04/06/17 16:10 DC 04/06/17 16:16 Morphine Sulfate (morphine) 4 mg ONCE STAT IV 04/06/17 18:39 04/06/17 18:40 DC 04/06/17 18:51 Procedures/MDM Patient was evaluated and worked up for epigastric abdominal discomfort as described in history and physical examination. Patient was given 4 mg morphine IV, 4 mg Zofran IV with relief of symptoms. Workup included the following: The CBC: WNL History: WNL Lipase: WNL Urinalysis: Few mucus, otherwise unremarkable Ultrasound radiology read: 1. Abdomen - unremarkable right upper quadrant ultrasound. No evidence of cholelithiasis or acute cholecystitis.. Pancreas suboptimally visualized 2. Pelvis - Prominent heterogeneity and thickening of the endometrium to 25 mm. There is no evidence of abnormal vascularity in the endometrium to suggest retained products of conception although the level of thickening is more than would be expected approximately 2 months after a miscarriage. Continued follow- up is recommended. Nonvisualization of the right ovary. Radiology delays because patient to stay here longer. Toradol 30 mg IV was administered due to return of discomfort. Repeat exam of the abdomen revealed the same results. Presents of the case my new attending Dr. Morales who suggested a CT scan which was given the following readings: 1. Right lower lobe peripheral 5 mm pulmonary nodule, nonspecific. 2. Otherwise, unremarkable noncontrast CT scan of the abdomen and pelvis. Most likely diagnosis is abdominal pain of unknown etiology. I recommended follow-up with gynecology for further evaluation of endometrium. Results of the ultrasounds and CTs have been given.. At this time I do not suspect acute pancreatitis, cholangitis, myocardial/Intestinal ischemia, pneumonia, hernia, or esophageal rupture. On repeat exam, the abdomen had improved shortly after medication administration. The patient is well appearing, and tolerates PO. I have spoke with the patient regarding their condition and future management including speak to the patient at great length about follow-up with software release engineer or PCP if unavailable. They have verbally responded that they understand their status and treatment plan. The patients vitals are stable, and their current condition is appropriate for discharge. The patient will be given discharge instructions with return precautions. Discharge medications: [place] 5/325 mg p.o. 5 tabs Departure Diagnosis: Primary Impression: Abdominal pain Qualified Code: R10.84 - Generalized abdominal pain Condition: Stable Additional Instructions: Follow up with your PCP within the next 1-3 days for a more thorough evaluation and a possible referral to a specialist. List of gynecology has been handed to you for follow-up within the next week. Return the the emergency department immediately if symptoms worsen or change. If you have any questions regarding medications, ask your pharmacist or us before you leave. If any adverse reactions occur while taking your medications, discontinue the treatment and return to the emergency department immediately. Take your medications as directed, and complete the entire course of treatment. HUEY MORENO PA-C Apr 06, 2017 13:40
--- NOTE | 2017-04-06 14:31 | RADRPT ---
PROCEDURE: Right upper quadrant ultrasound CLINICAL INDICATION: Abdominal pain TECHNIQUE: Multiple real-time images were acquired of the patient's abdomen and right retroperiton eum utilizing a high resolution transducer. COMPARISON: None FINDINGS: The liver is normal in echogenicity and measures cm. No focal hepatic masses are seen. The gallbl adder is partially distended. There is no evidence of gallstones, gallbladder wall thickening, or p ericholecystic fluid. The intra and extrahepatic bile ducts are normal in caliber. The common bile duct measures 4.11 mm. Midline images demonstrate the pancreas head to be normal in echogenicity without obvious inflammato ry change. The body and tail are suboptimally seen. Survey views of the right kidney demonstrate no evidence of hydronephrosis or renal calculi. The ri ght kidney measures 10.5 cm. IMPRESSION: Unremarkable right upper quadrant ultrasound. No evidence of cholelithiasis or acute cholecystitis. . Pancreas suboptimally visualized RPTAT: HH .Cody Kincaid MD, MD Date Time Electronically viewed and signed by .Cody Kincaid MD, on 04/06/2017 14:31 .W/
[2017-04-06 15:08] LABS: BASOPHIL # 0.1 10^3/ul (0.0-0.1); BASOPHILS % 0.6 % (0.0-2.0); EOSINOPHILS # 0.4 10^3/ul (0.0-0.5); EOSINOPHILS % 3.8 % (0.0-7.0); HEMATOCRIT 40.8 % (37.0-47.0); HEMOGLOBIN 12.9 g/dl (12.0-16.0); LYMPHOCYTES # 2.3 10^3/ul (0.8-2.9); LYMPHOCYTES % 25.2 % (15.0-51.0); MEAN CORPUSCULAR HEMOGLOBIN 27.2 pg (29.0-33.0); MEAN CORPUSCULAR HGB CONC 31.6 g/dl (32.0-37.0); MEAN CORPUSCULAR VOLUME 85.9 fl (82.0-101.0); MEAN PLATELET VOLUME 9.4 fl (7.4-10.4); MONOCYTE # 0.8 10^3/ul (0.3-0.9); MONOCYTES % 8.1 % (0.0-11.0); NEUTROPHIL # 5.8 10^3/ul (1.6-7.5); NEUTROPHILS % 62.1 % (39.0-77.0); PLATELET COUNT 385 10^3/UL (140-415); RED BLOOD COUNT 4.75 10^6/ul (4.20-5.40); RED CELL DISTRIBUTION WIDTH 12.8 % (11.5-14.5); WHITE BLOOD COUNT 9.3 10^3/ul (4.8-10.8)
[2017-04-06 15:18] LABS: ADD UMIC YES; UR ASCORBIC ACID NEGATIVE (NEGATIVE); UR BILIRUBIN (Dip) NEGATIVE (NEGATIVE); UR BLOOD (Dip) 1+ mg/dL (NEGATIVE); UR CLARITY CLEAR (CLEAR); UR COLOR YELLOW (YELLOW); UR GLUCOSE (Dip) NEGATIVE (NEGATIVE); UR KETONES (Dip) NEGATIVE (NEGATIVE); UR LEUKOCYTE ESTERASE (Dip) NEGATIVE Leu/ul (NEGATIVE); UR MUCUS FEW /HPF (NONE SEEN); UR NITRITE (Dip) NEGATIVE (NEGATIVE); UR RBC 1 /HPF (0-5); UR TOTAL PROTEIN (Dip) NEGATIVE (NEGATIVE); UR UROBILINOGEN (Dip) NEGATIVE (NEGATIVE)
[2017-04-06 15:28] LABS: ALBUMIN 4.5 g/dl (3.3-4.9); ALBUMIN/GLOBULIN RATIO 1.25; BILIRUBIN,INDIRECT 0.4 mg/dl (0-1.1); BILIRUBIN,TOTAL 0.4 mg/dl (0.2-1.3); CALCIUM 9.4 mg/dl (8.4-10.2); CREATININE 0.71 mg/dl (0.44-1.00); POTASSIUM 3.8 mmol/L (3.5-5.1); TOTAL PROTEIN 8.1 g/dl (6.1-8.1)
[2017-04-06] MEDS ORDERED: KETOROLAC 30 MG INJ IV STA (16:09)
--- NOTE | 2017-04-06 17:10 | RADRPT ---
PROCEDURE: US Pelvis CLINICAL INDICATION: pain, miscarriage in January 2017 TECHNIQUE: Multiple sonographic images of the pelvis were obtained utilizing a transabdominal and endovaginal technique. The images were reviewed on a PACS workstation. COMPARISON: None. LMP: 02/27/2017 FINDINGS: The uterus measures 9.3 x 5.5 x 7.1 cm. There is heterogeneity of the endometrium which measures up to 25 mm in thickness. There is no evidence of abnormal vascularity in the endometrium to suggest r etained products of conception. The right ovary is not visualized. The left ovary measures 3.3 x 2.5 x 2.7 cm. There is normal vascu lar flow in the left ovary. No significant ovarian lesions are seen. No significant pelvic free fluid is identified. IMPRESSION: Prominent heterogeneity and thickening of the endometrium to 25 mm. There is no evidence of abnormal vascularity in the endometrium to suggest retained products of conception although the level of thi ckening is more than would be expected approximately 2 months after a miscarriage. Continued follow- up is recommended. Nonvisualization of the right ovary. RPTAT: EE Physician Anjelica Date Time Electronically viewed and signed by Physician Anjelica on 04/06/2017 17:10 /
--- NOTE | 2017-04-06 19:33 | RADRPT ---
PROCEDURE: CT Abdomen and Pelvis without contrast. CLINICAL INDICATION: Mid abdominal pain TECHNIQUE: CT scan of the abdomen and pelvis without contrast was performed on a multidetector hig h-resolution CT scanner. The patient was scanned without intravenous contrast. Coronal and sagittal reformatted images were obtained from the axial source images. Images were reviewed on a high-resol [employer] PACS workstation. The total exam CTDI equals 18.75 mGy and the total exam DLP equals 1101.39 m Gy-cm. One or more of the following dose reduction techniques were used: - Automated exposure control. - Adjustment of the mA and/or kV according to patient size. - Use of iterative reconstruction technique. COMPARISON: Abdominal and pelvic ultrasound 04/06/2017 FINDINGS: Evaluation is limited without intravenous contrast. A nonspecific 5 mm peripheral nodule is seen in the right lower lobe posterior laterally (series 3, image 13). The partially imaged heart is normal in size. No pericardial effusion or thickening is se en at the levels scanned. The liver is normal in size and attenuation. The liver surface is smooth. There is no evidence of di screte solid hepatic mass. There is no intrahepatic biliary ductal dilatation. The gallbladder is un remarkable. No radiopaque gallstones are seen. The spleen is normal in size and attenuation. The ornelas creas is unremarkable in morphology and attenuation. No peripancreatic inflammatory changes are seen . The adrenal glands are unremarkable bilaterally. The bilateral kidneys are normal in size, morphol ogy, and attenuation. There is no hydronephrosis, hydroureter or perirenal collection. No radiopaque urinary calculus is identified. The lower thoracic aorta and abdominal aorta are normal in caliber. No lymphadenopathy is seen in th e abdomen, pelvis, or retroperitoneum. A few mildly prominent, sub centimeter allen cecal lymph nodes are noted, nonspecific. No dilated bowel segments or intraluminal air-fluid levels are noted. No allyssa wel wall thickening is seen. A normal appearing appendix is seen in the right lower quadrant. The me sentery, as visualized, is unremarkable. No free fluid or free intraperitoneal air is seen. The uterus is mildly enlarged, but otherwise unremarkable. The left ovary is unremarkable. The right ovary is not well seen. The unenhanced, under distended urinary bladder is grossly unremarkable. There are mild degenerative changes of the visualized spine. There is straightening of the lumbar lo rdosis. No osteolytic or osteoblastic lesion is detected. IMPRESSION: 1. Right lower lobe peripheral 5 mm pulmonary nodule, nonspecific. 2. Otherwise, unremarkable noncontrast CT scan of the abdomen and pelvis. RPTAT: QQ Shelton Michele Physician Date Time Electronically viewed and signed by Shelton Michele, Physician on 04/06/2017 19:33 RC/
[2017-04-06] MEDS ORDERED: HYDR-906 PO (19:37)
[2017-04-06 19:56] VITALS: BP 122/65; PULSE 65; RESP 16
== END 2017-04-06 19:57 | disposition home or self-care (01) ==
LOC: FTE 12:04
DX: R10.84 Generalized abdominal pain (principal)
CPT/HCPCS: 36415; 74176; 76705; 76830; 76856; 80053; 81001; 83690; 85025; 96374; 96375; 96376; J1885; J2270; J2405; Z7502